=== PATIENT | male | born 1950 | race Caucasian/White ===

== ENCOUNTER 2016-04-24 14:02 | Emergency (ER) | payer MEDICARE, BC ==
[2016-04-24] MEDS ORDERED: RT ALBUTEROL CC18 GM INH (14:20)
[2016-04-24] MEDS ORDERED: TYLENOL 325MG325 MG PO (14:22)
[2016-04-24] MEDS ORDERED: LOMOTIL1 TAB PO (14:24)
[2016-04-24] MEDS ORDERED: NORCO 325 MG-7.1 TA1 PO (14:26)
[2016-04-24] MEDS ORDERED: LEVOTHYROXINE PO (14:27)
[2016-04-24] MEDS ORDERED: FIBERCON625 M1 PO (14:28)
[2016-04-24] MEDS ORDERED: LOPERAMIDE2 M2 PO (14:28)
[2016-04-24] MEDS ORDERED: STIOLTO RESPIMAT4 GM INH (14:30)
[2016-04-24] MEDS ORDERED: TRAMADOL 50 MG TAB PO (14:30)
[2016-04-24] MEDS ORDERED: FENTANYL12.5 MCG/H TD (14:58)
[2016-04-24] MEDS ORDERED: ATIVAN0.5 MG PO (14:58)
== END 2016-04-24 16:15 | disposition home or self-care (01) ==
LOC: ED 14:02
DX: J95.09 Other tracheostomy complication (principal); R06.00 Dyspnea, unspecified; R07.9 Chest pain, unspecified

== ENCOUNTER → 2016-07-11 | Outpatient (CLI) | payer MEDICARE, BC ==
[2016-04-24 16:11] VITALS: BP 137/89
[~2016-07-11] MED LIST: ATIVAN0.5 MG PO; FENTANYL12.5 MCG/H TD; FIBERCON625 M1 PO; LEVOTHYROXINE PO; LOMOTIL1 TAB PO; LOPERAMIDE2 M2 PO; NORCO 325 MG-7.1 TA1 PO; RT ALBUTEROL CC18 GM INH; STIOLTO RESPIMAT4 GM INH; TRAMADOL 50 MG TAB PO; TYLENOL 325MG325 MG PO
== END ==
LOC: LAB 10:00
DX: C76.0 Malignant neoplasm of head, face and neck (principal); E03.9 Hypothyroidism, unspecified

== ENCOUNTER → 2016-09-05 | Outpatient (CLI) | payer MEDICARE, BC ==
[2016-04-24 16:11] VITALS: BP 137/89
== END ==
LOC: LAB 11:24
DX: D64.9 Anemia, unspecified (principal)